=== PATIENT | male | born 1990 | race Caucasian/White ===

== ENCOUNTER 2019-02-01 01:26 | Emergency (ER) | payer OTHER ==
[2019-02-01] MEDS ORDERED: NS 0.9% 1000 ML** 1,000 ML IV ONE (01:52)
[2019-02-01] MEDS ORDERED: Metoclopramide IV* 5 MG/ML 2 ML VIAL IV SLOW PU ONE (01:52)
[2019-02-01] MEDS ORDERED: Morphine 4 MG/ML VIAL (1 ml) 4 MG/ML VIAL IV ONE (01:52)
[2019-02-01] MEDS ORDERED: Diazepam SYRINGE* 5 MG/ML 2 ML SYRINGE (10 MG total) IV ONE (01:52)
[2019-02-01] MEDS ORDERED: Ketorolac INJ* 15 MG/ML 1 ML VIAL IV PUSH ONE (01:53)
[2019-02-01] MEDS ORDERED: Diazepam INJ (NF) 5 MG/ML 10 ML VIAL (50 MG TOTAL) IV ONE (02:00)
--- NOTE | 2019-02-01 02:44 | ED ---
Back Pain - HPI Summary HPI Summary: Pt is a 28 y/o M presenting to the ED via EMS with right sided low back pain and associated N/V. Pt describes pain as spasms and notes that back pain was severe to the point that he could not sleep. Pain was reported as a 10/10 and has not improved since being in the ED. Back pain onset after 01/30/2019 when lifting a "box with fencing for cows" at 1700 that night. Patient reports no immediate onset of pain but states that he awoke with pain later that night. The back pain increased from the onset and rendered the pt immobile on 2018. He states that he spent most of 01/31/19 sitting on a couch. Pt used a hot and cold compress, lidocaine patches, icy hot, Ibuprofen and Diazepam for the pain with no effect. Pt reports that any type of movement causes increased pain. N/V onset while patient was in ED. Pt urinated 3 hours before arrival to ED and has a Hx of chronic back pain but iterated that the pain was "never this bad". On triage, it is noted that the patient took diazepam 10 mg at 2000 . - History of Current Complaint Chief Complaint: EDBackInjuryPain Stated Complaint: "BACK PAIN" PER EMS Hx Obtained From: Patient Onset/Duration: Gradual Onset, Lasting Days, Still Present, Worse Since Onset/Duration: Started Days Ago - PAIN STARTED ON 01/30/2019, Still Present, Worse Since Back Pain Location: Is Discrete @ - lower back Severity Initially: Moderate Severity Currently: Severe Pain Intensity: 10 Pain Scale Used: 0-10 Numeric Character: Spasmodic Aggravating Symptom(s): Movement, Lifting, Bending, Walking Alleviating Symptom(s): Nothing Associated Signs And Symptoms: Positive: Other - POSITIVE - NAUSEA/VOMITING; NEGATIVE - ABNORMAL URINARTION - Allergies/Home Medications Allergies/Adverse Reactions: Allergies Allergy/AdvReac Type Severity Reaction Status Date / Time azithromycin [From Zithromax] Allergy Hives Verified 02/01/19 01:52 PMH/Surg Hx/FS Hx/Imm Hx Endocrine/Hematology History: Denies: Hx Diabetes Cardiovascular History: Denies: Hx Hypertension, Hx Pacemaker/ICD Sensory History: Denies: Hx Hearing Aid Psychiatric History: Denies: Hx Panic Disorder - Surgical History Surgery Procedure, Year, and Place: [facility] Infectious Disease History: No Infectious Disease History: Denies: Traveled Outside the [place] in Last 30 Days - Family History Known Family History: Negative: Cardiac Disease, Diabetes - Social History Alcohol Use: None Substance Use Type: Reports: Marijuana Substance Use Comment - Amount & Last Used: today Smoking Status (MU): Never Smoked Tobacco Review of Systems Positive: Vomiting, Nausea Genitourinary: Other - NEGATIVE - ABNORMAL URINATION Positive: Myalgia - R SIDED LOWER BACK PAIN All Other Systems Reviewed And Are Negative: Yes Physical Exam - Summary Physical Exam Summary: VITAL SIGNS: Reviewed. GENERAL: Patient is a well-developed and nourished MALE who is lying in the stretcher. Patient is not in any acute respiratory distress. Pt has tenderness over the lumbar spine, more so at right. HEAD AND FACE: No signs of trauma. No ecchymosis, hematomas or skull depressions. No sinus tenderness. EYES: PERRLA, EOMI x 2, No injected conjunctiva, no nystagmus. EARS: Hearing grossly intact. Ear canals and tympanic membranes are within normal limits. MOUTH: Oropharynx within normal limits. NECK: Supple, trachea is midline, no adenopathy, no JVD, no carotid bruit, no c- spine tenderness, neck with full ROM CHEST: Symmetric, no tenderness at palpation LUNGS: Clear to auscultation bilaterally. No wheezing or crackles. CVS: Regular rate and rhythm, S1 and S2 present, no murmurs or gallops appreciated. ABDOMEN: Soft, non-tender. No signs of distention. No rebound no guarding, and no masses palpated. Bowel sounds are normal. EXTREMITIES: FROM in all major joints, no edema, no cyanosis or clubbing. Bilateral straight leg test positive at 30 degrees. NEURO: Alert and oriented x 3. No acute neurological deficits. Speech is normal and follows commands. SKIN: Dry and warm Triage Information Reviewed: Yes Vital Signs On Initial Exam: Initial Vitals Pulse BP Pulse Ox 84 148/75 100 02/01/19 01:32 02/01/19 01:32 02/01/19 01:32 Vital Signs Reviewed: Yes Diagnostics - Vital Signs Vital Signs Temp Pulse Resp BP Pulse Ox 02/01/19 02:08 28 02/01/19 02:07 28 02/01/19 01:35 98.3 F 82 20 148/75 99 02/01/19 01:32 84 148/75 100 - Laboratory Result Diagrams: 02/01/19 02:16 02/01/19 02:16 Lab Statement: Any lab studies that have been ordered have been reviewed, and results considered in the medical decision making process. Back Pain Course/Dx - Course Course Of Treatment: Pt is a 28 y/o M presenting to the ED via EMS with right sided low back pain and associated N/V. Pt describes pain as spasms and notes that back pain was severe to the point that he could not sleep. Pain was reported as a 10/10 and has not improved since being in the ED. Back pain onset after 01/30/2019 when lifting a "box with fencing for cows" at 1700 that night. Patient reports no immediate onset of pain but states that he awoke with pain later that night. The back pain increased from the onset and rendered the pt immobile on 01/31/2019. He states that he spent most of 01/31/19 sitting on a couch. Pt used a hot and cold compress, lidocaine patches, icy hot, Ibuprofen and Diazepam for the pain with no effect. Pt reports that any type of movement causes increased pain. N/V onset while patient was in ED. Pt urinated 3 hours before arrival to ED and has a Hx of chronic back pain but iterated that the pain was "never this bad". On physical exam, lumbar tenderness is noted, worse on right. Patient has positive straight leg test bilaterally at 30 degrees. Pt received Diazepam 5 mg IV ED ONCE ONE, Ketorolac Tromethamine 15 mg IV PUSH ONCE ONE, Metoclopramide Hcl 10 mg IV SLOW PU ONCE ONE, Morphine Sulfate 4 mg IV ED ONCE ONE, and fluids. The pt also had a Hgb of 13.6, Hct of 41, MCH of 32 , Potassium of 3.2, Glucose of 115, Alkaline Phosphate of 24, and Total Protein of 6.2. After ED course, patient reported improvement of Sx and stated that the back pain had resolved. Bloodwork was discussed, Pt was told to f/u with PCP within 3 days and to return to the ED with any new or worsening symptoms. Pt was agreeable in all aspects. - Diagnoses Provider Diagnoses: Back pain Discharge - Sign-Out/Discharge Documenting (check all that apply): Patient Departure - discharged Patient Received Moderate/Deep Sedation with Procedure: No - Discharge Plan Condition: Stable Disposition: HOME Prescriptions: Cyclobenzaprine TAB* [Flexeril 10 MG TAB*] 10 mg PO TID PRN #20 tab PRN Reason: Spasms - Back Ibuprofen TAB* [Motrin TAB* 800 MG] 800 mg PO Q6H PRN #30 tab PRN Reason: Pain Patient Education Materials: Back Pain (ED) Referrals: Miguel Angel Aguilar MD [Primary Care Provider] - 3 Days Additional Instructions: PLEASE RETURN TO THE ED IMMEDIATELY FOR WORSENING OR CONCERNING SYMPTOMS. FOLLOW UP WITH PRIMARY CARE PHYSICIAN WITHIN THREE DAYS. - Attestation Statements Document Initiated by Scribe: Yes Documenting Scribe: CATHEI SIEGEL Provider For Whom Scribe is Documenting (Include Credential): DIGNA MEJIA MD Scribe Attestation: ICATHIE AND YVETTE SIEGEL, scribed for DIGNA MEJIA MD on 02/01/19 at 0559. Status of Scribe Document: Ready
[2019-02-01 02:55] LABS: ABS Eosinophils 0.1 10^3/ul (0-0.6); ABS Lymphocytes 1.6 10^3/ul (1.0-4.8); ABS Monocytes 0.6 10^3/ul (0-0.8); ABS Neutrophils 7.5 10^3/ul (1.5-7.7); Eosinophil % 0.7 %; Hematocrit 41 % (42-52); Hemoglobin 13.6 g/dL (14.0-18.0); Lymphocyte % 16.2 %; Mean Corpuscular HGB Conc 34 g/dL (31-36); Mean Corpuscular Hemoglobin 32 pg (27-31); Mean Corpuscular Volume 94 fL (80-94); Mean Platelet Volume 8.9 fL (7.4-10.4); Platelet Count 231 10^3/uL (150-450); Red Blood Count 4.32 10^6 /uL (4.18-5.48); Red Cell Distribution Width 13 % (10.5-15); White Blood Count 9.7 10^3/uL (3.5-10.8)
[2019-02-01 03:04] LABS: Albumin 4.2 g/dL (3.2-5.2); Albumin/Globulin Ratio 2.1 (1-3); BUN/Creatinine Ratio 14.1 (8-20); Calcium 8.6 mg/dL (8.6-10.3); EGFR African American 143.4 (>60); EGFR Non-African American 118.5 (>60); Potassium 3.2 mmol/L (3.5-5.0); Total Bilirubin 0.3 mg/dL (0.2-1.0); Total Protein 6.2 g/dL (6.4-8.9)
[2019-02-01 06:16] VITALS: BP 121/67
== END 2019-02-01 06:00 | disposition home or self-care (01) ==
LOC: ED 01:26
DX: M54.5 Low back pain (principal); G89.29 Other chronic pain
CPT/HCPCS: 36415; 80053; 85025; 96361; 96374; 96375; 99283; J1885; J2270; J2765; J3360